=== PATIENT | female | born 1990 | race Caucasian/White ===

== ENCOUNTER 2017-11-04 06:00 | Inpatient (IN) ==
[2017-11-04] MEDS ORDERED: ACETAMINOPHEN 500 MG TABLET PO PRN ×2 (06:15→16:42)
[2017-11-04] MEDS ORDERED: CALCIUM CARBONATE Chewable 500mg TABLET PO PRN ×2 (06:15→16:42)
[2017-11-04] MEDS ORDERED: LIDOCAINE 1% (10mg/ml) 2mL INJ PF SDV ID PRN (06:15)
[2017-11-04] MEDS ORDERED: CARBOPROST 250 MCG/ML INJECTION IM PRN (06:15)
[2017-11-04] MEDS ORDERED: METHYLERGONOVINE 0.2 MG/ML INJECTION IM PRN (06:15)
[2017-11-04] MEDS ORDERED: OXYTOCIN DRIP 30 UNIT/500 ML ML IV PRN (06:15)
[2017-11-04] MEDS ORDERED: D5LR 1,000 ML IV PRN (06:15)
[2017-11-04] MEDS ORDERED: MAG-AL + SIM ORAL LIQUID 30ml PO PRN ×2 (06:15→16:42)
--- OUTSIDE RECORDS SUMMARY | 2017-11-04 06:17 | External Medical Summary | Clinical Summary ---
:1990 Author Organization [facility] Address [address] [address] Phone Care Team Providers Name Role Phone Justin Barton DO Primary Care Provider Allergies Active Allergy Reactions Severity Noted Date Comments Adhesive Tape 12/04/2012 AREA SWELLS WHERE CONTACT IS MADE Current Medications Prescription Sig. Disp. Refills Start Date End Date Status dicyclomine (BENTYL) 20 Take 20 mg by Active MG tabletIndications: ABD mouth 4 (four) PAIN times daily as needed. Indications: ABD PAIN hydrocortisone (WESTCORT) Apply topically Active 0.2 % creamIndications: 2 (two) times RASH daily as needed. Apply to affected area twice daily. Indications: RASH Norgestim-Eth Estrad Take 1 tablet Active Triphasic (ORTHO by mouth daily. TRI-CYCLEN LO) Indications: 0.18/0.215/0.25 MG-25 MCG TABSIndications: hydrocodone-acetaminophen Take 1-2 30 tablet 0 12/17/2012 Active (NORCO) 5-325 MG tablets by mouth every 4 (four) hours as needed for Pain. .Verify Clinic Meds verify clinic 0 03/26/2013 Active (MEDICATION LIST NOT meds IMPORTED) hydrochlorothiazide TAKE ONE TABLET 90 tablet 1 05/08/2013 Active (HYDRODIURIL) 25 MG BY MOUTH DAILY tablet Active Problems Problem Noted Date Anal fissure 12/17/2012 Family History Medical History Relation Name Comments Other Other Mother - thyroid Other Other Father - HTN, dyslipidemia Other Other Maternal Grandmother - is Alive, Cancer, lung Other Other Paternal Grandfather - is , Other History: cancer Other Other Family History Comments - 3 sisters, 1 brother - healthy Relation Name Status Comments Father Alive Mother Alive Other Other Other Other Other Social History Tobacco Use Types Packs/Day Years Used Date Never Smoker Alcohol Use Drinks/Week oz/Week Comments Yes Alcoholic Drinks/day: Yes//occasionally Sex Assigned at Date Recorded Not on file Last Filed Vital Signs Vital Sign Reading Time Taken Blood Pressure 122/88 02/12/2013 2:34 PM CDT Pulse 93 12/17/2012 1:33 PM CDT Temperature 36.6 C (97.8 F) 12/17/2012 11:50 AM CDT Respiratory Rate 18 12/17/2012 1:33 PM CDT Oxygen Saturation 100% 12/17/2012 1:33 PM CDT Inhaled Oxygen Concentration - - Weight 86.2 kg (190 lb) 02/12/2013 2:34 PM CDT Height 160 cm (5' 3") 12/17/2012 8:53 AM CDT Body Mass Index 33.66 02/12/2013 2:34 PM CDT Plan of Treatment Health Maintenance Due Date Last Done Comments Varicella Vaccines (1 of 2 - 2 Dose 2002 Adolescent Series) DTaP,Tdap,and Td Vaccines (1 - Tdap) 2008 CERVICAL CANCER SCREENING 01/29/2016 01/28/2013, 12/06/2011 Influenza Vaccine (#1) 2017 Results Not on filefrom Last 3 Months
[2017-11-04] MEDS: LR 1,000 ML IV PRN ×3 (06:53→14:28)
--- NOTE | 2017-11-04 10:21 | Anesthesia Preoperative Report ---
Anesthesia Epidural/Spinal Rec - Date and Time Date: 11/04/17 Procedure: Labor Epidural Plan: Epidural - Vital Signs Vital Signs: Temperature 98.1 F 11/04/17 07:14 Pulse Rate 90 11/04/17 07:14 Respiratory Rate 16 11/04/17 07:14 Blood Pressure 117/66 11/04/17 07:14 Pulse Oximetry 97 11/04/17 06:41 /Para: P:1 Heart Rate: 127 - Medictaions & Allergies Inpatient Medications: Current Medications Acetaminophen (Tylenol) 500 - 1,000 mg PO Q4H PRN PRN Reason: Pain Al Hydroxide/Mg Hydroxide (Maalox Plus) 30 ml PO Q3H PRN PRN Reason: Indigestion Calcium Carbonate (Tums) 500 - 1,000 mg PO Q2H PRN PRN Reason: Indigestion Carboprost Tromethamine (Hemabate) 250 mcg IM O PRN PRN Reason: .Downtime Dextrose/Lactated Ringer's (Dextrose 5%-Lactated Ringers) 1,000 mls @ 125 mls/ hr IV .Q8H PRN PRN Reason: Labor Last Admin: 11/04/17 06:52 Dose: 125 mls/hr Lactated Ringer's (Lactated Ringers) 1,000 mls @ 999 mls/hr IV .Q1H1M PRN Last Admin: 11/04/17 09:01 Dose: 999 mls/hr Oxytocin (Pitocin Drip) 30 unit in 500 mls @ 2 mls/hr IV .Q24H PRN; Protocol PRN Reason: Induction/Augmentation Last Admin: 11/04/17 06:53 Dose: 2 mls/hr Lidocaine HCl (Xylocaine-Mpf 1% Vial) 0.2 mg ID O PRN PRN Reason: IV Start Methylergonovine Maleate (Methergine) 0.2 mg IM O PRN Misoprostol (Cytotec) 800 mcg [place] ONCE PRN Allergies/Adverse Reactions: Allergies Allergy/AdvReac Type Severity Reaction Status Date / Time adhesive Allergy Unknown Verified 11/04/17 06:51 No Known Drug Allergies Allergy Unknown Verified 11/04/17 06:51 - Home Medications Home Medications: Home Medications Medication Instructions Recorded Confirmed Type Docosahexanoic Acid [ Dha] 1 cap PO DAILY #0 cap 04/20/15 History Levothyroxine Sodium 50 mcg PO ACB #0 tab 04/20/15 History - Medical History Respiratory: DENIES: Asthma Cardiovascular: DENIES: Hypertension Gastrointestional: Reports: Gastroesophageal Reflux Disease (occassionally) Renal/Endocrine: Reports: Thyroid Disease (takes meds) Other History: Reports: Now DENIES: Anesthesia Reactions - Surgical History HEENT Surgeries: Reports: Tonsillectomy Reproductive Surgery/Treatment: DENIES: Section Anesthesia Reactions: None Hx Family Anesthesia Reaction: No History of Motion Sickness: No - Social History Smoking Status: Never smoker Substance Use Type: does not use - Pertinent Findings Lab Data: CBC and BMP 11/04/17 06:36 - Physical Exam Respiratory Exam: lungs clear, bilateral breath sounds equal Cardiovascular Exam: regular rate and rhythm - Airway Assessment Mallampati Score: II TMD: 3 Fingerbreadths Neck Extension: good Overall Assessment: may be difficult mask vent, may be difficult intubation - ASA ASA Score: 2 - Discussion Discussion: Discussed risks/options/alternatives of anesthesia and questions answered. Patient consents. Nursing pain assessment noted. Anesthesia Discussion: spouse Attestation Statement: Prior to the delivery of any anesthetic medication, I examined the patient, developed the plan, obtained the patient's consent and discussed the risk and benefits of the procedure with the patient/guardian.
[2017-11-04] MEDS ORDERED: ROPIVACAINE 1% 10MG/ML INJ 200 MG, SUFentanil 50 MCG in NS 100 ML EPI PRN (10:22)
[2017-11-04] MEDS ORDERED: DiphenhydrAMINE 50 MG/ML INJECTION IVP PRN (10:22)
[2017-11-04] MEDS ORDERED: NALOXONE 0.4 MG/ML INJECTION IVP PRN (10:22)
[2017-11-04] MEDS ORDERED: ONDANSETRON 4 MG/2 ML INJECTION IVP PRN (10:22)
[2017-11-04 11:07] VITALS: BMI 90.5
[2017-11-04] MEDS ORDERED: LIDOCAINE 2%/EPI 1:200,000 20ml SDV PF ONE (14:22)
[2017-11-04] MEDS ORDERED: BENZOCAINE 20% SPRAY 0.5 ML MM ONE (16:42)
[2017-11-04] MEDS ORDERED: HYDROCODONE/APAP 5mg/325mg TABLET PO PRN (16:42)
[2017-11-04] MEDS ORDERED: HYDROCORTISONE 2.5% CREAM 30gm RECTALLY PRN (16:42)
[2017-11-04] MEDS ORDERED: OXYTOCIN DRIP 30 UNIT/500 ML ML IV SCH (16:42)
[2017-11-04] MEDS ORDERED: DiphenhydrAMINE 25 MG CAPSULE PO PRN (16:42)
[2017-11-04] MEDS: IBUPROFEN 800 MG TABLET PO PRN (19:45)
[2017-11-05 01:58] VITALS: RESP 16
[2017-11-05] MEDS: IBUPROFEN 800 MG TABLET PO PRN ×2 (05:48→13:29)
[2017-11-05 06:01] VITALS: PULSE 84
[2017-11-05] MEDS ORDERED: DOCUSATE CALCIUM 240 MG CAPSULE PO SCH (09:00)
--- NOTE | 2017-11-05 12:45 | Anesthesia Postoperative Note ---
- Date and Time Date: 11/05/17 Time: 12:45 - Status Patient Participated in Evaluation: Patient Participated in Person Vital Signs: Temperature 98.1 F 11/05/17 06:00 Pulse Rate 84 11/05/17 06:00 Respiratory Rate 16 11/05/17 06:00 Blood Pressure 133/88 11/05/17 06:00 Pulse Oximetry 99 11/05/17 06:00 Respiratory Function: Airway Patent Mental Status: Alert and Oriented Pain Intensity: 0 Hydration: Taking PO Fluids Complications During Recover: None Apparent - Follow-Up Instructions Instructions: Per Surgeon
--- NOTE | 2017-11-05 13:14 | Progress Note ---
OB PP Progress Note Free Text - Date Date: 11/05/17 - Progress Note Progress Note: vss af no c/o lab reviewed q&a-krb
[2017-11-05 13:29] VITALS: BP 132/83; TEMP 98.4; O2SAT 98
--- NOTE | 2017-11-05 17:26 | Labor and Delivery Note ---
DATE OF DELIVERY: 11/04/2017 DIAGNOSES 1. 26-year-old white female, G2, P1 at 38.3 weeks gestational age. 2. Persistent polyhydramnios. 3. Pitocin induction for polyhydramnios. 4. Maternal hypothyroid. 5. Epidural. 6. Artificial rupture of membranes. 7. Spontaneous vaginal delivery. 8. Female , 8/9 Apgars, 3430 g (Bertha Garza). 9. Second-degree perineal laceration - repaired. DESCRIPTION This is a patient of mine whose induction was moved up because of polyhydramnios. It has been persistent for a few weeks so we induced her at term. Cervix was favorable when we began. Pitocin reached a maximum of 24 milliunits a minute. Artificial rupture of membranes occurred and was clear. Patient made it to complete dilation and then we began pushing. Spontaneous vaginal delivery occurred from the OA position. Infant was bulb suctioned after delivery of the head and then again after delivery of the body. Cord was allowed to drain for about a minute and a half and then it was doubly clamped and cut. was initially placed on the mother's abdomen. Placenta delivered spontaneously and was intact. It will be sent to Pathology because of the polyhydramnios. There was a second-degree perineal laceration that was repaired with 2-0 Vicryl that a little bit of the top skin edges were not firmly together so we used a 3-0 chromic with a couple of simple interrupted stitches over the top of it to complete the repair. Maternal blood type was O+, rubella is immune and group B strep was negative. EBL was 250. MTDD
== END 2017-11-05 17:40 | disposition home or self-care (01) | DRG 775 ==
LOC: MC 06:10
PROVIDERS: ADMIT Obstetrics & Gynecology; ATTEND Obstetrics & Gynecology